=== PATIENT | female | born 1965 | race Caucasian/White ===

== ENCOUNTER 2021-05-24 11:27 | Emergency (ER) | payer BC ==
[~2021-05-24] VITALS: Ht 163 cm; Wt 63.5 kg
--- OUTSIDE RECORDS SUMMARY | 2021-05-24 11:33 | XMS REPORT ---
Author Author 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 [id number] [place] [address] Oct, Doctor Migration IMMUNIZATIONS No Information SOCIAL HISTORY Sex Assigned At : Social History Observation Description Sex Assigned At Unknown REASON FOR REFERRAL No Information VITAL SIGNS No information MEDICATIONS Medication SIG (Take, Route, Frequency, Duration) Notes Start Da te End Date Status PROzac 40 mg take 1 capsule (40 mg) by oral route onc e daily in the morning [facility] Aug, Active Naprosyn 500 mg 1 tablet by Oral route 2 times per day [facility] Jun, Active Zocor 10 mg 1 tablet by Oral route 1 time per day [facility] Jun, Active Multivitamin 1 tablet by Oral route 1 time per day [facility] Jun, Active KlonoPIN 1 mg 1 Tablet by Oral route 4 times per day for anxie ty [facility] Aug, Active Mobic 15 mg 1 Tablet by Oral route 1 time per day PRN pain [facility] Aug, Active Topamax 50 mg 1 Tablet by Oral route 1 time per day [facility] Aug Active levETIRAcetam 500 mg 1 Tablet by Oral route 2 nicole es per day for seizure disorder [facility] Aug, Active [place] Carbonate 300 mg 1 Tablet by Oral route 1 nicole e per day qAM AND2 Tablet by Oral route 1 time per day [facility] Aug, Active levothyroxine 75 mcg 1 Tablet by Oral route 1 time per day f or hypothyroidism [facility] Aug, Active trazodone 50 mg take 1 tablet by Oral route 1 time per day [facility] Aug, Active LaMICtal 200 mg 1 Tablet by Oral route 1 time per day [facility] 2014 Active [place] 7.5-325 mg 1 Tablet by Oral route every 6 hours PRN pain M [facility] Aug, Active ZyPREXA 2.5 mg 1 Tablet by Oral route 1 time per day [facility] Aug, Active PROCEDURES No Information RESULTS No Results REASON FOR VISIT No Information Goals Section No Information Health Concerns No Information MEDICAL EQUIPMENT No Information MENTAL STATUS No Information FUNCTIONAL STATUS No Information ASSESSMENTS No Information PLAN OF TREATMENT No Information
--- OUTSIDE RECORDS SUMMARY | 2021-05-24 11:33 | XMS REPORT ---
Author Author [facility] Address Unknown Phone Unavailable Care Team Providers Care Business Analytics Intern Name Role Phone Jackson SEAN Unavailable PROBLEMS Type Condition ICD9-CM Code [id number] Code Onset Dates Condition S tatus W/U Status Risk SNOMED Code Notes Problem Major depressive disorder, r ecurrent episode, severe, without mention of psychotic behavior 296.33 Active 46186317 MO D EPRESSIVE RECURRENT SEVERE W/O PSYCHOTIC BEHAVIOR Problem Chronic hepatitis C without mention of hepatic coma 070.54 Active [id number] HEPATITIS, C VIRUS - CHRONIC Problem Other persistent mental diso rders due to conditions classified elsewhere 294.8 Active [id number] OR DEMENTIA NO S ALLERGIES No Information ENCOUNTERS from 1965 to 2021-05-11 Encounter Location Date Provider Diagnosis [facility] [address] [facility] [id number] [place] [address] Jun, SEAN Paz IMMUNIZATIONS No Information SOCIAL HISTORY Sex Assigned At : Social History Observation Description Sex Assigned At Unknown REASON FOR REFERRAL No Information VITAL SIGNS Height 64.5 in Jun, Weight 164.12 lbs Jun, Temperature 98.8 degrees Fahrenheit Jun, Heart Rate 76 bpm Jun, Respiratory Rate 28 bpm Jun, Blood pressure systolic 120 mmHg Jun, Blood pressure diastolic 80 mmHg Jun, MEDICATIONS Medication SIG (Take, Route, Frequency, Duration) Notes Start Da te End Date Status PROzac 40 mg take 1 capsule (40 mg) by oral route onc e daily in the morning [facility] Aug, Active Naprosyn 500 mg 1 tablet by Oral route 2 times per day [facility] Jun, Active Zocor 10 mg 1 tablet by Oral route 1 time per day [facility] Jun, Active Multivitamin 1 tablet by Oral route 1 time per day [facility] Jun, Active KlonoPIN 1 mg 1 Tablet by Oral route 4 times per day for anxie ty [facility] Aug, Active Mobic 15 mg 1 Tablet by Oral route 1 time per day PRN pain M [facility] Aug, Active Topamax 50 mg 1 Tablet by Oral route 1 time per day [facility] Aug Active levETIRAcetam 500 mg 1 Tablet by Oral route 2 nicole es per day for seizure disorder [facility] Aug, Active [place] Carbonate 300 mg 1 Tablet by Oral route 1 nicole e per day qAM AND2 Tablet by Oral route 1 time per day [facility] Aug, Active levothyroxine 75 mcg 1 Tablet by Oral route 1 time per day f or hypothyroidism [facility] Aug, Active trazodone 50 mg take 1 tablet by Oral route 1 time per day [facility] Aug, Active LaMICtal 200 mg 1 Tablet by Oral route 1 time per day [facility] , 2014 Active [place] 7.5-325 mg 1 Tablet by Oral route every 6 hours PRN pain M [facility] Aug, Active ZyPREXA 2.5 mg 1 Tablet by Oral route 1 time per [facility] Aug, Active PROCEDURES No Information RESULTS No Results REASON FOR VISIT No Information Goals Section No Information Health Concerns No Information MEDICAL EQUIPMENT No Information MENTAL STATUS No Information FUNCTIONAL STATUS No Information ASSESSMENTS No Information PLAN OF TREATMENT No Information
[2021-05-24 11:35] VITALS: BP 129/80
[2021-05-24] MEDS ORDERED: DOXY100T2 PO (11:50)
[2021-05-24] MEDS ORDERED: ACHD5005 PO (11:50)
--- NOTE | 2021-05-24 11:51 | ED Integumentary General ---
General Chief Complaint: Skin/Wound Problems Stated Complaint: R HAND INFECTED Source: patient Exam Limitations: no limitations History of Present Illness Date Seen by Provider: May 24, 2021 Time Seen by Provider: 11:46 Initial Comments To ER with reports of right hand infection. She has a couple of sores but the most concerning one to her is to the radial side of the ring finger on the right hand present for a few days. No known cause. No fevers or chills. Timing/Duration: constant Severity: moderate Location: hands Possible Cause: no cause identified Associated Symptoms: denies symptoms Allergies and Home Medications Patient Home Medication List Home Medication List Reviewed: Yes Review of Systems Review of Systems Constitutional: see HPI EENTM: see HPI Respiratory: no symptoms reported Cardiovascular: no symptoms reported Genitourinary: no symptoms reported Musculoskeletal: no symptoms reported Skin: see HPI Psychiatric/Neurological: No Symptoms Reported Endocrine: No Symptoms Reported Physical Exam Vital Signs Capillary Refill : General Appearance: WD/WN, no apparent distress Neck: non-tender, full range of motion Cardiovascular: regular rate, rhythm, no murmur Respiratory: lungs clear, normal breath sounds, no respiratory distress, no accessory muscle use Gastrointestinal: normal bowel sounds, non tender, soft Extremities: normal range of motion, non-tender Neurologic/Psychiatric: alert, normal mood/affect, oriented x 3 Skin: normal color, warm/dry Skin Problem Character: other (There is an abscess to the radial side of the ring finger. There is about 2 cm of surrounding erythema and cellulitis type changes. She retains flexion and extension ability. Brisk capillary refill. A pair of scissors and pickups were used to lift the roof of this abscess up which was then trimmed and debrided with scissors. Culture of the underlying tissue was collected.) Progress/Results/Core Measures Results/Orders My Orders Orders - CHARISSE HINES APRN Wound Culture (05/24/21 11:45) Departure Impression Primary Impression: Abscess Disposition: 01 HOME, SELF-CARE Condition: Stable Departure-Patient Inst. Decision time for Depature: 11:49 Referrals: NO,LOCAL PHYSICIAN (PCP/Family) Primary Care Physician Patient Instructions: Skin Abscess Add. Discharge Instructions: 1. Change dressing daily. Return to ER All discharge instructions reviewed with patient and/or family. Voiced understanding. Scripts Hydrocodone/Acetaminophen (Hydrocodone-Acetamin 5-325 mg) 1 Each Tablet 1 TAB PO Q4H PRN for PAIN-MODERATE (5-7), #10 TAB Prov: CHARISSE HINES APRN 05/24/21 Doxycycline Hyclate (Doxycycline Hyclate) 100 Mg Tablet 100 MG PO BID, #20 TAB 0 Refills Prov: CHARISSE HINES APRN 05/24/21 CHARISSE HINES APRN May 24, 2021 11:51
== END 2021-05-24 12:02 | disposition home or self-care (01) ==
LOC: EDUNIT# 11:27 → ER 11:30
DX: L02.511 Cutaneous abscess of right hand (principal)
CPT/HCPCS: 87070; 87077; 87186; 87205